=== PATIENT | female | born 1960 | race Caucasian/White ===

== ENCOUNTER 2017-04-09 18:44 | Emergency (ER) | payer MEDICAID ==
[~2017-04-09] VITALS: Ht 152.4 cm; Wt 44.0 kg
[2017-04-09 18:44] VITALS: BP_SYST 144
--- NOTE | 2017-04-09 18:44 | NUR ---
BROUGHT IN BY [facility] AND PLACED IN BED #7, TRIAGED AND REPORT GIVEN TO ISELA
--- NOTE | 2017-04-09 18:50 | NUR ---
Patient brought in BLS complaining of left hip pain x 3 days. Denies any trauma. Pain 05/19. No other complaints/injuries per patient or as noted. Will continue to monitor.
--- NOTE | 2017-04-09 19:06 | NUR ---
ER at bedside examining patient.
--- NOTE | 2017-04-09 20:18 | NUR ---
Patient resting in bed. Voiced no complaints
--- NOTE | 2017-04-09 21:24 | NUR ---
ER at bedside examining patient.
[2017-04-09 22:20] VITALS: BP_SYST 133
--- NOTE | 2017-04-09 22:20 | NUR ---
Patient given written and verbal discharge instructions and verbalizes understanding. ER MD discussed with patient the results and treatment provided. Patient in stable condition. ID arm band removed. Rx of Richardson 5-325 given. Patient educated on pain management and to follow up with PMD. Pain Scale 3/10 tolerable for patient. Opportunity for questions provided and answered. Medication side effect fact sheet provided.
== END 2017-04-09 22:20 | disposition home or self-care (01) ==
LOC: SED 18:44
DX: M25.552 Pain in left hip (principal); I10 Essential (primary) hypertension; J44.9 Chronic obstructive pulmonary disease, unspecified; F17.200 Nicotine dependence, unspecified, uncomplicated; Z85.41 Personal history of malignant neoplasm of cervix uteri; Z88.0 Allergy status to penicillin
CPT/HCPCS: 73502; 99284